=== PATIENT | male | born 1945 | race Caucasian/White ===

== ENCOUNTER → 2025-01-31 08:47 | Outpatient (REF) | payer OTHER, SELFPAY | LOC: PAVMRI 08:47 | PROVIDERS: ATTENDING PHYSICIAN Physical Medicine & Rehabilitation; FAMILY PHYSICIAN Family Medicine | DX: M54.16 Radiculopathy, lumbar region (principal) | CPT/HCPCS: 72148 ==

== ENCOUNTER → 2025-05-16 14:21 | Outpatient (REF) | payer OTHER, SELFPAY ==
[2025-05-16 15:41] LABS: % Basophils 0.5 % (0-2); % Eosinophils 2.4 % (0-6); % Immature Granulocytes 0.3 % (0-0.5); % Lymphocytes 23.3 % (20.5-51.1); % Monocytes 10.5 % (1.7-9.3); Absolute Eosinophils 0.2 10^3/uL (0-0.7); Absolute Lymphocytes 1.9 10^3/uL (1.2-3.4); Absolute Monocytes 0.8 10^3/uL (0.1-0.6); Hematocrit 39.3 % (39.0-52.0); Hemoglobin 13.8 g/dL (13.0-18.0); Mean Corp Hgb Conc. 35.1 g/dL (33.0-37.0); Mean Corpuscular Volume 91.2 fL (80.0-94.0); Mean Platelet Volume 9.3 fL (7.4-10.4); Nucleated Red Blood Cells % 0 % (-); Platelet Count 256 10^3/uL (130-400); Red Blood Cell Count 4.31 10^6/uL (4.70-6.10)
[2025-05-16 16:06] LABS: Blood Urea Nitrogen 25 mg/dl (9-20); Calcium 9.7 mg/dl (8.4-10.2); Carbon Dioxide 24 mmol/L (22-30); Chloride 105 mmol/L (98-107); Glucose 108 mg/dl (70-99); Potassium 4.9 mmol/L (3.5-5.1); Sodium 139 mmol/L (135-145); eGFR > 60.00
== END ==
LOC: RCS 14:21
PROVIDERS: ATTENDING PHYSICIAN Orthopaedic Surgery; FAMILY PHYSICIAN Family Medicine
DX: Z01.818 Encounter for other preprocedural examination (principal)
CPT/HCPCS: 36415; 80048; 85025; 93005

== ENCOUNTER 2025-05-17 07:00 | Day surgery (SDC) | payer OTHER, SELFPAY ==
[2025-05-17] VITALS (11 sets, daily range): BP systolic 113–154; BP diastolic 60–99; BMI 31.0
[2025-05-17 10:33] LABS: Glucose - Point of Care 141 mg/dl (70-99)
[2025-05-17] MEDS: TYLENOL 1000 MG PO (10:33)
[2025-05-17] MEDS: CELEBREX 200 MG PO (10:33)
[2025-05-17] MEDS: NORMOSOL-R/PLASMALYTE-A 1000 IV (10:36)
[2025-05-17] MEDS: SUBLIMAZE 25 MCG IV ×2 (12:50→13:00)
[2025-05-17 12:58] LABS: Glucose - Point of Care 116 mg/dl (70-99)
[2025-05-17] MEDS: ROXICODONE 5 MG PO (14:05)
== END 2025-05-17 14:16 | disposition home or self-care (01) ==
LOC: SDS 07:00
PROVIDERS: ATTENDING PHYSICIAN Orthopaedic Surgery
DX: S66.324A Laceration of extensor muscle, fascia and tendon of right ring finger at wrist and hand level, initial encounter (principal); S61.551A Open bite of right wrist, initial encounter; W55.01XA Bitten by cat, initial encounter
CPT/HCPCS: 26418; 25118; 82962; 87070; 87075; 87205